=== PATIENT | female | born 2000 | race African-American/Black ===

== ENCOUNTER 2021-01-03 03:15 | Emergency (ER) | payer BC, MEDICAID ==
[~2021-01-03] VITALS: Ht 172.7 cm; Wt 63.0 kg
[2021-01-03] MEDS ORDERED: ONDANSETRON HCL 4MG/2ML INJ IV STA (03:39)
[2021-01-03] MEDS ORDERED: HALOPERIDOL LACTATE 5MG/ML VIAL IM ONE (03:45)
[2021-01-03 04:01] LABS: BASOPHILS % 0.5 % (0.0-2.0); EOSINOPHILS % 0.4 % (0.0-5.0); HEMATOCRIT. 42.5 % (36.0-48.0); HEMOGLOBIN. 14.1 g/dL (12.0-16.0); LYMPHOCYTES % 30.3 % (20.0-50.0); MEAN CORPUSCULAR HEMOGLOBIN 29.6 pg (28.0-32.0); MEAN CORPUSCULAR VOLUME 89.2 fL (81.0-99.0); MEAN PLATELET VOLUME 9.5 fl (7.4-10.4); MONOCYTES % 3.7 % (2.0-8.0); NEUTROPHILS % 65.1 % (40.0-76.0); PLATELET 232 x1000/uL (130-400); RED BLOOD CELL COUNT 4.76 mill/uL (4.2-5.4); RED CELL DISTRIBUTION WIDTH 12.4 % (11.6-14.6)
[2021-01-03 04:02] LABS: CHLORIDE 108 mEq/L (98-107)
[2021-01-03 04:06] LABS: ETHANOL BLOOD < 10 mg/dL
[2021-01-03] MEDS ORDERED: POTASSIUM CHLORIDE 20MEQ TABLET SR PO SCH (04:45)
[2021-01-03 05:44] VITALS: BP 96/42
== END 2021-01-03 06:53 | disposition home or self-care (01) ==
LOC: ER 03:15
DX: R11.2 Nausea with vomiting, unspecified (principal); F12.90 Cannabis use, unspecified, uncomplicated
CPT/HCPCS: 36415; 71045; 80053; 80320; 83690; 85025; 93005; 96372; 96374; 99285; J1630; J2405; G0480